=== PATIENT | female | born 1965 | race Caucasian/White ===

== ENCOUNTER 2021-06-14 18:54 | Emergency (ER) | payer SELFPAY ==
--- NOTE | ~2021-06-14 | US_ITS ---
EXAMINATION: US VENOUS ULTRASOUND WITH DOPPLER LOWER EXTREMITY, RIGHT CLINICAL INFORMATION: Right lower extremity pain COMPARISON: 03/24/2021 TECHNIQUE: Ultrasound of the deep veins is performed from the hip to the calf with compression sonography and color and pulse Doppler assessment. Spectral analysis with color-flow imaging is performed. FINDINGS: There is normal venous compression and respiratory variation and augmented flow. The visualized common femoral vein, superficial femoral vein, profunda femoral vein, popliteal vein, and the trifurcation region shows no evidence of deep venous thrombosis. There is no significant popliteal fossa cyst. If the patient's symptoms persist, followup ultrasound in 5 days 7 days might be of value to exclude proximal propagation from a non-visualized calf vein. US/US venous duplex LE RT IMPRESSION: No DVT demonstrated in the right lower extremity.
[2021-06-14 20:16] VITALS: BP 149/95; PULSE 78; RESP 19; TEMP 36.6; O2SAT 98; BMI 38.6
== END 2021-06-14 22:47 | disposition left against medical advice (07) ==
PROVIDERS: Emergency Provider Emergency Medicine
DX: R60.0 Localized edema (principal); M79.661 Pain in right lower leg; M79.605 Pain in left leg; M79.604 Pain in right leg
CPT/HCPCS: 93971; 99282; 99284